=== PATIENT | male | born 1990 | race African-American/Black ===

== ENCOUNTER 2017-01-06 18:58 | Inpatient (IN) ==
[2017-01-06] MEDS ORDERED: ASPIRIN PO STA (19:59)
[2017-01-06] MEDS ORDERED: ASPIRIN EC ONE (20:02)
[2017-01-06 20:19] LABS: MANUAL DIFF NEEDED? NO
[2017-01-06 20:28] LABS: BASO% 0.2 % (0.0-0.8); HEMATOCRIT 43.4 % (42.0-52.0); HEMOGLOBIN 15.2 g/dL (14.0-18.0); IMM GRAN# 0.01 X1000 (0.0-0.04); IMM GRAN% 0.2 % (0.0-0.5); LYMPH# 0.65 X1000 (1.2-3.4); LYMPH% 16.1 % (20.5-51.1); MCV 79.9 FL (81-99); MONO# 0.13 X1000 (0.11-0.59); MONO% 3.2 % (1.7-9.3); MPV 9.6 FL (7.4-10.4); NEUT% 80.3 % (42.2-75.2); PLT 151 X1000 (130-400); RBC 5.43 XMIL (4.7-6.1)
[2017-01-06 20:46] LABS: AGAP 13; ALBUMIN 4.1 g/dL (3.5-5.0); ALKALINE PHOSPHATASE 83 U/L (32-122); BUN 15 mg/dL (8-22); CALCIUM 9.1 mg/dL (8.8-10.2); CHLORIDE 98 mmol/L (98-107); COSMO 270; GOT 57 U/L (10-34); GPT 60 U/L (10-44); MAGNESIUM 2.1 mg/dL (1.5-2.7); POTASSIUM 3.9 mmol/L (3.5-5.1); SODIUM 133 mmol/L (136-145); TCO2 22 mmol/L (25-35); TOTAL PROTEIN 7.9 g/dL (6.3-8.3)
[2017-01-06 20:49] LABS: CK PROFILE 1133 U/L (24-204)
--- NOTE | 2017-01-06 20:50 | EKG Report ---
Test Performed on : 01/06/2017 7:30:13 PM Test Reason : CP Blood Pressure : / mmHG Vent. Rate : 100 BPM Atrial Rate : 100 BPM P-R Int : 136 ms QRS Dur : 096 ms QT Int : 340 ms P-R-T Axes : 040 009 000 degrees QTc Int : 438 ms Normal sinus rhythm. Normal ECG When compared with ECG of 06-JAN-2017 19:29, (Unconfirmed) No significant change was found Unconfirmed Result
[2017-01-06 20:56] LABS: INR 0.97 (0.86-1.15); PROTIME 13.7 Seconds (12.1-15.5); PTT PL 33.3 Seconds (22.6-43.9)
[2017-01-06 21:04] LABS: CK INDEX 0.1 (0.0-2.5); CK-MB 1.06 ng/mL (0.0-5.0)
--- NOTE | 2017-01-06 21:07 | Diag Imaging Result Doc PS360 ---
EXAM: CHEST-2 VIEWS HISTORY: CP TECHNIQUE: COMPARISON: 04/18/2014 FINDINGS: The lungs are well expanded except for minimal atelectasis in the right base. The heart is not enlarged. The vessels are not distended. There are no infiltrates. No pleural effusions. IMPRESSION: Right middle lobe atelectasis, otherwise negative exam. Electronically signed by Kenny Gilbert 01/06/2017 9:05 PM
--- NOTE | 2017-01-06 23:03 | ED EKG INTERP ---
This chart was entered by Latricia Sahfer Scribe, acting as scribe for Rogelio Jefferson Jr, MD. EKG Interpretation - EKG Time of EKG reading by physician:: 19:30 EKG Read and Signed by:: Rogelio Jefferson Jr EKG Interpretation (*Must complete 3 of following elements*): Normal Rate: 100 Rhythm: normal sinus rhythm Comments: normal ECG Attestation - Physician/ ROB Attestation The physician spent face to face time with patient:: No Advanced Practice Provider documentation review:: Supervising physician onsite and consulted in the evaluation and care of this patient. The physician did not have a face to face encounter with the patient. This chart was documented by the indicated scribe, (Latricia Shafer Scribe) and accurately reflects the services I performed and decisions made by me, Rogelio Jefferson Jr, MD, as attested by the provider's signature.
[2017-01-07] MEDS ORDERED: NS 1,000 ML IV ONE ×2 (00:37→01:37)
[2017-01-07] MEDS ORDERED: ZOFRAN IV PRN (01:37)
[2017-01-07] MEDS ORDERED: MORPHINE IV PRN (01:37)
--- NOTE | 2017-01-07 01:37 | PROVIDER DOCUMENTATION ---
This chart was entered by Latricia Shafer Scribe, acting as scribe for Rogelio Jefferson Jr, MD. HPI-Chest Pain - General Chief Complaint: Chest Pain Stated Complaint: CHEST PAIN/BP HIGH Time Seen by Provider: 01/06/17 21:42 Source: patient Allergies/Adverse Reactions: Patient Allergies Allergy/AdvReac Type Severity Reaction Status Date / Time No Known Allergies Allergy Verified 09/18/14 18:01 - History of Present Illness-CP Nature of Presenting Problem: 26 Y/O M presents to Er with the complain of chest pain started this evening. pt states that he was watching tv when the pain started. pt states that pain is on the L side of chest and does not radiates. pt states that he went to urgent care this morning and got a shot of antibiotic and steroids for his sinus and ear infection. pt denies any other symptoms. Location: reports: other (L side) Chest Pain Radiation: reports: no radiation Quality of Pain: reports: sharp Onset/Duration: this evening Timing: improving Nitro Today/Relief: no nitro taken today Aspirin Treatment Today: provided at home Prior Chest Pain/Cardiac Workup: reports: no prior chest pain Similar Symptoms Previously?: No Recently Seen Here or By Another Healthcare Provider: Yes Review of Systems - Adult - REVIEW OF SYSTEMS - ADULT Constitutional: reports: no symptoms reported Eyes: reports: no symptoms reported Ears, Nose, Mouth & Throat: reports: no symptoms reported Cardiovascular: reports: chest pain. denies: irregular heart rate, palpitations Respiratory: reports: no symptoms reported Gastrointestinal: reports: no symptoms reported Genitourinary: reports: no symptoms reported Musculoskeletal: reports: no symptoms reported Integumentary: reports: no symptoms reported Neurological: reports: no symptoms reported Psychiatric: reports: no symptoms reported Endocrine: reports: no symptoms reported Hematologic/Lymphatic: reports: no symptoms reported Allergic/Immunologic: reports: no symptoms reported All Other Systems: Reviewed and Negative Past History - Adult - PAST MEDICAL HISTORY-ADULT Review of Records: reports: Old Records Reviewed, Nursing Assessment Review Major Childhood Illnesses: reports: denies history Cardiovascular: reports: HTN - PRIOR SURGERIES/PROCEDURES Surgical/Procedure History: reports: none - IMMUNIZATION STATUS Childhood Immunizations: See Nurse Assessment Flu Vaccine: See Nurse Assessment - SOCIAL HISTORY Smoking: cigarettes Provider spent 3-5 mins advising pt. on dangers of tobacco.: Discussed manners to quit use, and f/u contacts for add'l counseling. Substance Use: alcohol Physical Exam-General - PHYSICAL EXAM-ADULT Initial Vital Signs Reviewed: Yes - CONSTITUTIONAL General Appearance: appears well, alert - EYES Eyes: PERRL/EOMI, pink conjunctivae - HEAD, EARS, NOSE, MOUTH & THROAT HENMT: moist mucous membranes, normal ENT inspection - NECK Neck: non-tender, full range of motion, supple - RESPIRATORY Respiratory: chest non-tender, lungs clear, normal breath sounds - CARDIOVASCULAR Cardiovascular: normal peripheral pulses, regular rate, rhythm, no edema - GASTROINTESTINAL (ABDOMEN) Abdominal Exam: normal bowel sounds, non tender, soft - MUSCULOSKELETAL Back Exam: normal inspection, no CVA tenderness, no vertebral tenderness Extremity: normal range of motion, non-tender, normal gait - SKIN Integumentary: normal color, normal turgor, warm/dry - NEUROLOGIC Neurologic: grossly normal, no motor/sensory deficits - PSYCHIATRIC Psych/Mental Status: normal mood/affect, normal thought content, normal thought process, oriented x 3 Progress - PLAN OF CARE/RESULTS Progress/Plan/Lab Results: Vital Signs - 8 hr 01/06/17 19:17 01/06/17 23:31 Temperature 98.5 F 97.2 F L Pulse Rate 95 H 76 Respiratory Rate 18 20 Blood Pressure 161/86 127/79 O2 Sat by Pulse Oximetry 94 L 99 Laboratory Results - last 24 hr 01/06/17 01/06/17 01/06/17 20:15 20:15 20:15 WBC RBC Hgb Hct MCV MCH MCHC RDW Std Deviation Plt Count MPV Immature Gran % (Auto) Neut % (Auto) Lymph % (Auto) Pine % (Auto) Eos % (Auto) Baso % (Auto) Immature Gran # (Auto) Neut # (Auto) Lymph # (Auto) Pine # (Auto) Eos # (Auto) Baso # (Auto) PT INR APTT (Factor Assay) D-Dimer Sodium 133 L Potassium 3.9 Chloride 98 Carbon Dioxide 22 L Anion Gap 13 BUN 15 Creatinine 0.9 Estimated GFR/1.73 m2 > 60 BUN/Creatinine Ratio 17 Glucose 148 H Calculated Osmolality 270 Calcium 9.1 Magnesium 2.1 Total Bilirubin 0.50 AST 57 H ALT 60 H Alkaline Phosphatase 83 Creatine Kinase 1133 H Creatine Kinase Index 0.1 CK-MB (CK-2) 1.06 Troponin T < 0.010 Jks-W-Uvflpshkqes Pept 67 Total Protein 7.9 Albumin 4.1 Globulin 4.0 Albumin/Globulin Ratio 1.0 01/06/17 01/06/17 20:15 20:15 WBC 4.03 L RBC 5.43 Hgb 15.2 Hct 43.4 MCV 79.9 L MCH 28.0 MCHC 35.0 RDW Std Deviation 14.1 Plt Count 151 MPV 9.6 Immature Gran % (Auto) 0.2 Neut % (Auto) 80.3 H Lymph % (Auto) 16.1 L Pine % (Auto) 3.2 Eos % (Auto) 0.0 Baso % (Auto) 0.2 Immature Gran # (Auto) 0.01 Neut # (Auto) 3.23 Lymph # (Auto) 0.65 L Pine # (Auto) 0.13 Eos # (Auto) 0.00 Baso # (Auto) 0.01 PT 13.7 INR 0.97 APTT (Factor Assay) 33.3 D-Dimer 2.60 H Sodium Potassium Chloride Carbon Dioxide Anion Gap BUN Creatinine Estimated GFR/1.73 m2 BUN/Creatinine Ratio Glucose Calculated Osmolality Calcium Magnesium Total Bilirubin AST ALT Alkaline Phosphatase Creatine Kinase Creatine Kinase Index CK-MB (CK-2) Troponin T Dde-U-Ddptsqaigyy Pept Total Protein Albumin Globulin Albumin/Globulin Ratio Orders Category Date Time Status Cardiac Monitoring DIRECTED Care 01/06/17 20:00 Active Oxygen Therapy- ED Nursing DIRECTED Care 01/06/17 20:00 Active Saline Loc NOW Care 01/06/17 20:00 Active CHEST-2 VIEWS [RAD] Stat Exams 01/06/17 20:[address] ANGIOGRM/PULMONARY ARTERIES [CT] Stat Exams 01/06/17 21:48 Taken CBC WITH ELECTRONIC DIFF [HEME] Stat Lab 01/06/17 20:15 Completed CK PROFILE [SP CHEM] Stat Lab 01/06/17 20:15 Completed COMPREHENSIVE METABOLIC PANEL [CHEM] Stat Lab 01/06/17 20:[address] Com[address] D-DIMER PL [COAG] Stat Lab 01/06/17 20:15 Completed MAGNESIUM [CHEM] Stat Lab 01/06/17 20:15 Completed PRO B-NATRIURETIC PEPTIDE Stat Lab 01/06/17 20:15 Com[address]IME WITH INR PL [COAG] Stat Lab 01/06/17 20:[address] [COAG] Stat Lab 01/06/17 20:15 Completed TROPONIN T Stat Lab 01/06/17 20:15 Completed 0.9% Sodium Chloride Inj [Ns] 1,000 ml Med 01/07/17 00:37 Active IV 999 mls/hr Aspirin Med 01/06/17 19:59 Discontinued 325 mg PO STAT STA Aspirin EC Med 01/06/17 20:02 Discontinued 325 mg .ROUTE .STK-MED ONE EKG [EKG] Stat Ther 01/06/17 20:00 Draft Result Diagrams: 01/06/17 20:15 01/06/17 20:15 - XRAY 1 XRAY: Bilateral XRAY Study: Chest Impression: Abnormal XRAY Interpretation: Right middle lobe atelectasis otherwise negative by radiologist - CT/MRI 1 CT Study: Angiogram Impression: Normal CT Results: no PE identified, mild R hilar adenopathy is nonspecificby radiologist - CONSULTS/PCP/HOSPITALIST Notification #1 *Consult/PCP/Hospitalist*: Dr. Ferris Time Discussed: 01:32 Reason/Comments: discussed about pt Consult Disposition: Admit (OBSERVATION) Departure - Departure Date of Disposition Decision: 01/07/17 Time of Disposition Decision: 01:36 DIAGNOSIS: Rhabdomyolysis Qualifiers: Rhabdomyolysis type: non-traumatic Qualified Code(s): M62.82 - Rhabdomyolysis Disposition: ADMITTED INPATIENT 09 Certified Medical Emergency: Emergent Condition: Good Referrals and Follow-Ups: Gilberto Vásquez MD [Primary Care Provider] - Work Excuses: Return to School/Parent Work - Critical Care Note This patient required my direct & personal management of CC.: No Attestation - Physician/ ROB Attestation The physician spent face to face time with patient:: Yes Advanced Practice Provider documentation review:: Supervising physician onsite and consulted in the evaluation and care of this patient. The physician did have a face to face encounter with the patient. This chart was documented by the indicated scribe, (Latricia Shafer Scribe) and accurately reflects the services I performed and decisions made by me, Rogelio Jefferson Jr, MD, as attested by the provider's signature.
--- NOTE | 2017-01-07 08:19 | Diag Imaging Result Doc PS360 ---
EXAM: CT ANGIOGRM/PULMONARY ARTERIES HISTORY: elevated d-dimer with risk factors TECHNIQUE: CT angiogram of the chest with IV contrast with 3-D reconstructions as per standard protocol. COMPARISON: None. FINDINGS: There is appropriate pulmonary arterial opacification. No filling defects are appreciated. There is no evidence for acute pulmonary embolism. There is no evidence for aortic aneurysm or dissection. There are some mildly prominent right hilar lymph nodes. There is moderate atelectasis within the right middle lobe and a small amount of atelectasis within the lingula of the left upper lobe. No pleural or pericardial effusion is appreciated. No pneumothorax is identified. There is mild gynecomastia. There are a few scattered noncalcified pulmonary nodules which measure 3 mm or less. There is a small area of pneumatocele formation or pulmonary emphysema within the posterior right upper lobe. Preliminary interpretation was given by [facility]. IMPRESSION: No evidence for acute pulmonary embolism. Right middle lobe atelectasis. Mild with prominent right hilar lymph nodes. Other incidental and nonacute findings as detailed above. Electronically signed by Betty Simon 01/07/2017 8:17 AM
[2017-01-07] MEDS ORDERED: NICODERM PATCH TD PRN (09:25)
[2017-01-07] MEDS: TYLENOL PO PRN ×3 (09:41→23:12)
[2017-01-07 09:53] LABS: MANUAL DIFF NEEDED? NO
[2017-01-07 09:55] LABS: BASO% 0.3 % (0.0-0.8); HEMATOCRIT 42.7 % (42.0-52.0); HEMOGLOBIN 14.8 g/dL (14.0-18.0); IMM GRAN# 0.02 X1000 (0.0-0.04); IMM GRAN% 0.5 % (0.0-0.5); LYMPH# 0.72 X1000 (1.2-3.4); LYMPH% 19.5 % (20.5-51.1); MCHC 34.7 g/dL (33-37); MCV 80.9 FL (81-99); MONO# 0.09 X1000 (0.11-0.59); MONO% 2.4 % (1.7-9.3); MPV 9.7 FL (7.4-10.4); NEUT% 77.3 % (42.2-75.2); PLT 147 X1000 (130-400); RBC 5.28 XMIL (4.7-6.1)
[2017-01-07] MEDS: NS 1,000 ML IV SCH ×3 (09:57→23:13)
--- NOTE | 2017-01-07 10:07 | HISTORY AND PHYSICAL ---
PRIMARY CARE PHYSICIAN: Dr. Gilberto Vásquez MD CHIEF COMPLAINT: Substernal chest pain. HISTORY OF PRESENT ILLNESS: This is a 26-year-old male who presents to [facility] ER with complaints of substernal chest pain, shortness of breath, states the pain is nonradiating and intermittent. He states he went to a walk- in clinic the day prior and got a steroid shot and an antibiotic shot for a sinus and ear infection. He states when he got home, he felt a heaviness in his chest, felt some shortness of breath, and so he came to the emergency room for evaluation and treatment. His cardiac enzymes showed a creatine kinase of 1133 with a normal CKMB of 1.06 and a negative troponin of less than 0.010. He had a D-dimer of 2.60. A pulmonary arteriogram was obtained that showed an impression of no evidence for an acute pulmonary embolism, some right middle lobe atelectasis, mild, with prominent right hilar lymph nodes. His white cells were within normal limits. He was admitted for further evaluation and treatment. PAST MEDICAL HISTORY: Hypertension. PAST SURGICAL HISTORY: Right cyst removed from his right testicle. FAMILY HISTORY: Hypertension, heart disease, cancer and a CVA. SOCIAL HISTORY: He currently lives with his , smokes 1/2 pack of cigarettes a day and has done so for 13 years. Denies any alcohol or illicit drug use. ALLERGIES: He has no known drug allergies. HOME MEDICATIONS: He does not take any medications on a routine basis. DIAGNOSTIC DATA: White blood cell count is 4.03, hemoglobin 15.2, hematocrit 43.4, platelets 151. PT and INR of 13.7 and 0.97 with a D-dimer of 2.60. Sodium is 133, potassium 3.9, chloride 98, CO2 is 22, BUN is 15, creatinine 0.9, glucose 148, magnesium 2.1. AST is 57 with an ALT of 60. Alkaline phosphatase is 83. Creatine kinase of 1133. CKMB is 1.06 with a troponin of less than 0.010. ProBNP of 67. Chest x-ray showed right middle lobe atelectasis, otherwise negative exam. Pulmonary arteriogram showed no evidence of a pulmonary embolism, right middle lobe atelectasis mild with prominent right hilar lymph nodes and other incidental and nonacute findings. EKG on arrival showed normal sinus rhythm at 100. REVIEW OF SYSTEMS: He denied any fever, chills, blurred vision or dizziness. He was positive for some chest pain, substernal and nonradiating, shortness of breath, nausea and vomiting. Denied any abdominal pain, constipation, diarrhea or burning or hurting with urination. PHYSICAL EXAMINATION: VITAL SIGNS: On arrival, he had a temperature of 98.5, pulse 95, respirations 18, blood pressure 161/86, saturating 94% on room air. Currently he has a temperature of 100.4 with a pulse of 108, respirations 18, blood pressure 144/72, saturating 99% on room air. GENERAL: This is a 26-year-old male who is lying in the bed and answers questions appropriately. HEENT: Normocephalic and atraumatic. Pupils are equal, round and reactive to light. Extraocular movements were intact. Oropharynx and nares are clear. NECK: Supple. LUNGS: Clear to auscultation bilaterally with equal lung expansion and chest wall movement. HEART: Regular rate and rhythm. No murmurs, rubs or gallops. ABDOMEN: Soft, nontender and nondistended. Bowel sounds are present x4 quadrants. EXTREMITIES: There is no cyanosis, clubbing or edema. NEUROLOGICAL: The cranial nerves II through XII are grossly intact. ASSESSMENT: 1. Chest pain. 2. Elevated D-dimer. 3. Rhabdomyolysis. 4. Recent diagnosis of sinusitis. 5. Tobacco abuse. PLAN: He was admitted to the Medical Unit. Initially held n.p.o., but I do not feel at this time that this is true cardiac related, so we will place him on a healthy heart diet , place him on telemetry, O2 saturation per protocol. We will check blood cultures x2. We will recheck a CBC, CMP and cardiac profile this a.m. Continue his normal saline at 150 mL per hour. Tylenol 650 p.o. q.4 hours p.r.n. We will start him on some doxycycline 100 mg IV q.12 since he has not completed his antibiotic treatment for his sinusitis and ear infection. He has some right middle lobe atelectasis which may be the beginning of some pneumonia, so we will place him on the doxycycline and will do a lower extremity venous Doppler to rule out any blood clots in his legs and recheck labs in a.m. Dictated by OTILIO Dutton for Justin Ferris MD cc: OTILIO Dutton MD Moses Awoniyi, MD pt examined, agree with above APENOT MTDD
[2017-01-07 10:21] LABS: AGAP 12; ALBUMIN 3.8 g/dL (3.5-5.0); ALKALINE PHOSPHATASE 76 U/L (32-122); BUN 13 mg/dL (8-22); CALCIUM 8.6 mg/dL (8.8-10.2); CHLORIDE 100 mmol/L (98-107); COSMO 270; GOT 53 U/L (10-34); GPT 58 U/L (10-44); POTASSIUM 3.8 mmol/L (3.5-5.1); SODIUM 135 mmol/L (136-145); TCO2 23 mmol/L (25-35); TOTAL PROTEIN 7.6 g/dL (6.3-8.3)
[2017-01-07 10:42] LABS: CK INDEX 0.1 (0.0-2.5); CK-MB 1.01 ng/mL (0.0-5.0)
[2017-01-07] MEDS: DOXYCYCLINE 100 MG in NS 250 ML IV SCH ×2 (10:46→21:44)
--- NOTE | 2017-01-07 11:03 | Extremity Venous Study ---
EXAM: Venous U/S Bilateral Legs HISTORY: elevated ddimer TECHNIQUE: Morejon scale, color Doppler, and duplex evaluation was performed. COMPARISON: None. FINDINGS: The deep veins of the bilateral lower extremities demonstrate appropriate compressibility and augmentation. No intraluminal thrombus is visualized. There is no evidence for DVT. The superficial veins appear patent. IMPRESSION: No evidence for deep venous thrombosis bilateral lower extremities. Electronically signed by Betty Simon 01/07/2017 11:01 AM
[2017-01-08] MEDS: TYLENOL PO PRN ×3 (04:04→19:55)
[2017-01-08] MEDS: NS 1,000 ML IV SCH ×3 (05:51→21:43)
[2017-01-08 06:04] LABS: HEMATOCRIT 40.5 % (42.0-52.0); HEMOGLOBIN 13.9 g/dL (14.0-18.0); MCHC 34.3 g/dL (33-37); MCV 81.5 FL (81-99); MPV 9.5 FL (7.4-10.4); RBC 4.97 XMIL (4.7-6.1)
[2017-01-08 06:21] LABS: ALBUMIN 3.4 g/dL (3.5-5.0); DIRECT BILIRUBIN 0.3 mg/dL (0.00-0.20); TOTAL BILIRUBIN 0.7 mg/dL (0.20-1.00); TOTAL PROTEIN 6.4 g/dL (6.3-8.3)
[2017-01-08] MEDS: ROCEPHIN 1 GM/NS 1 GM/50 ML IVPB IV SCH (06:43)
[2017-01-08 06:45] LABS: AGAP 13; BUN 11 mg/dL (8-22); CHLORIDE 100 mmol/L (98-107); COSMO 266; POTASSIUM 3.7 mmol/L (3.5-5.1); SODIUM 133 mmol/L (136-145); TCO2 19 mmol/L (25-35)
[2017-01-08] MEDS ORDERED: MORPHINE IV PRN (08:12)
--- NOTE | 2017-01-08 08:54 | PROGRESS NOTE ---
DATE: 01/08/2017 SUBJECTIVE: Patient states he is feeling better. Still having slight cough, still having slight congestion. Denies any other symptoms. Denies any chest pain. He does state that he had a fever last night. OBJECTIVE: Vital Signs Reviewed: Temperature 98 degrees, T-max 103 degrees, pulse 91, respiratory rate 18, BP 145/80, satting 98% on room air. General: Patient is awake, alert, currently in no respiratory distress. Pleasant to talk with. Neck: Supple. CV: Regular rate. Chest: Relatively clear and nonlabored. No wheezing. No crackles. Good air movement bilaterally. Abdomen: Soft. Extremities: Moves all extremities. Neurologic: No focal changes. Skin: Warm, dry and no rashes. LABS: CBC normal. CMP essentially normal. AST, ALT both remain elevated at 66 and 69. CPK has now dropped down to 392 from a high of 1133. ASSESSMENT: 1. Rhabdomyolysis, resolved. 2. Chest pain, resolved. 3. Elevated D-dimer with a negative deep vein thrombosis workup and a negative pulmonary embolus workup. 4. Fever of unknown significance. Blood cultures currently negative. Does not have a urine on chart. Certainly will check this and a urine culture. He continued to have fever yesterday. CT of his chest on chart and certainly will check that. PLAN: We will continue doxycycline. Will add Rocephin this morning as he had a fever; certainly this could be viral in nature. We will continue to follow. Further orders as needed. cc: MD Justin Cedeno MD
[2017-01-08] MEDS: DOXYCYCLINE 100 MG in NS 250 ML IV SCH ×2 (09:05→21:43)
[2017-01-08 09:59] LABS: BILIRUBIN URINE NEGATIVE (NEGATIVE); BLOOD URINE 1+ (NEGATIVE); GLUCOSE URINE NEGATIVE (NEGATIVE); LEUKOCYTES URINE TRACE (NEGATIVE); NITRITE URINE NEGATIVE (NEGATIVE); PH URINE 6.5; PROTEIN URINE TRACE mg/dL (NEGATIVE); UROBILINOGEN URINE 4+(12 mg/dL)
[2017-01-08 10:00] LABS: CLARITY CLEAR (CLEAR); COLOR YELLOW
[2017-01-08 10:24] LABS: URINE CULTURE PL NEEDED? YES; URINE EPITHELIAL CELLS >10 /HPF (<10); URINE SOURCE CLEAN CATCH
[2017-01-08] MEDS: MOTRIN PO PRN (17:23)
[2017-01-09] MEDS: TYLENOL PO PRN (04:36)
[2017-01-09] MEDS: ROCEPHIN 1 GM/NS 1 GM/50 ML IVPB IV SCH (05:52)
[2017-01-09] MEDS: DOXYCYCLINE 100 MG in NS 250 ML IV SCH (09:18)
[2017-01-09] MEDS: MOTRIN PO PRN (09:18)
--- NOTE | 2017-01-09 14:13 | Diag Imaging Result Doc PS360 ---
EXAM: CT THORAX W/O CONTRAST INDICATION: fever, ? pneumonia TECHNIQUE: COMPARISON: 01/06/2017 FINDINGS: Atelectasis in the right middle lobe is unchanged and there has been development of atelectasis in both lower lobes as well as the lingula. There has been development of trace bilateral pleural fluid at the bases. Otherwise, no new consolidations are appreciated. Tiny scattered pulmonary nodules are unchanged. The heart is not enlarged. Mildly prominent right hilar lymph nodes are unchanged. IMPRESSION: 1.Subsegmental atelectasis at the lower lung zones bilaterally that has worsened during the interval. 2.Interval development of trace bilateral pleural effusions. 3.Otherwise, the chest is stable. Electronically signed by Eduardo Elder 01/09/2017 2:11 PM
[2017-01-09 16:00] VITALS: BP 142/88
[2017-01-09] MEDS ORDERED: ZOSYN 3.375 GM in NS 50 ML IV SCH (16:15)
[2017-01-09] MEDS ORDERED: ZITHROMAX PO SCH (17:00)
--- NOTE | 2017-01-09 17:26 | Diag Imaging Result Doc PS360 ---
EXAM: CT PARANASAL SINUSES TECHNIQUE: INDICATION: sinusitis COMPARISON: None. FINDINGS: All of the paranasal sinuses are grossly clear and well aerated. There is no significant sinus mucosal thickening. There are no paranasal sinus air-fluid levels. The ostiomeatal units are widely patent bilaterally. The nasal cavity is clear. The mastoid air cells are clear. The visualized bony structures of the face are intact. The orbits and globes are unremarkable. Surrounding soft tissues are grossly unremarkable, otherwise. IMPRESSION: No evidence of acute or chronic sinusitis. Electronically signed by Eduardo Elder 01/09/2017 5:24 PM
--- NOTE | 2017-01-09 18:41 | CONSULTATION ---
DATE OF CONSULTATION: 01/09/2017 CONCLUSION: Patient is admitted to the hospital with fever. He sounded as though he had some type pulmonary process going on initially because he came in with pleuritic chest pain and having fever. His CT scan and chest x-ray never actually showed an infiltrate but did show pleural effusions. A CT angiogram showed no evidence of pulmonary embolus. The patient did tell me that he thought he had some type of sinus infection initially but he feels like he has cleared it now. RECOMMENDATIONS: I have ordered a CT scan of the sinuses. I have stopped doxycycline and put the patient on azithromycin. I stopped Rocephin and put the patient on Zosyn. DISCUSSION: The patient said approximately 4 days ago he had pleuritic chest pain and he felt he had fever. He was not coughing or short of breath. His CBC shows a white count of 3880, hemoglobin 13.9 and platelet count of 125,000. Creatinine 0.9. GFR is greater than 60. CPK when he came in was 1133, now it is 392. The ALT is 69. Blood and urine cultures are sterile. Urinalysis showed a trace of white cells and 2+ bacteria. CT angiogram showed no pleural effusion. CT scan of the chest showed atelectasis and pleural effusion. PAST MEDICAL HISTORY/REVIEW OF SYSTEMS: Eyes and ears: He denies difficulty hearing or seeing. Neck: No stiffness. Respiratory: See present illness. GI: No nausea, vomiting, or diarrhea. Cardiac: The patient initially had chest pain but it was pleuritic in nature and not necessarily associated with activity or eating. Neurologic: No seizure or loss of motor or sensory function. Integument: No rash. Genitourinary: No dysuria or flank pain. GI: No nausea, vomiting, or diarrhea. PREVIOUS HOSPITALIZATIONS AND OPERATIONS: Approximately 5 years ago he had a cyst removed from his right testicle. MEDICAL DISEASES: Positive for hypertension approximately 2 years ago but this has cleared spontaneously. INFECTIOUS DISEASE HISTORY: Negative for pneumonia and UTI. FAMILY HISTORY: Positive for diabetes mellitus, hypertension, cancer, myocardial infarction and stroke. [place]IAL HISTORY[place] He sm[place] cigarettes, drinks alcoholic beverages but does not abuse drugs. He is . He has cat and dog for pets. He is on no medicines at home. 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 PHYSICAL EXAMINATION: Vital Signs: Earlier this morning the temperature was 102 degrees, now it is 98.4, pulse 98, respirations 18, blood pressure 128/89. General: This is a slightly obese but otherwise healthy-appearing young male. He is in no acute distress. Head, eyes, ears, nose, and Throat:: No drainage noted from the nose or ears. Sinuses are not tender. Mouth. The patient did not have any white patches. Neck: No stiffness. Lungs: Clear to auscultation. Cardiovascular: Heart rate is regular. I did not hear a murmur. Abdomen: Soft and nontender. Neurologic: Patient is alert. He can move his extremities. There is no tremor. His sensation is intact to touch. His memory as regarding his medical history was intact. Thank you for the consult. cc: Efren Castanon MD
--- NOTE | 2017-01-09 22:13 | DISCHARGE SUMMARY ---
ADMISSION DATE: 01/06/2017 DISCHARGE DATE: 01/09/2017 DISCHARGE DIAGNOSES: 1. Fever of unknown origin. The patient continued to have fevers during the hospital stay, despite antibiotics. 2. Elevated D-dimer, negative. 3. Chest pain, resolved. 4. Rhabdomyolysis, resolved. 5. Recent sinusitis, which is most likely the cause of this current infection. 6. Chronic tobacco abuse. CONSULTATIONS: Dr. Castanon. PROCEDURES: CT of the chest negative. CT of the sinuses negative. Blood culture negative. Urine culture negative. BRIEF HOSPITAL COURSE: Patient is a 26-year-old male who is a patient of Dr. Vásquez. He presented to the hospital with chest pain, shortness of breath, cough, congestion. All of this resolved. Continued to have a fever throughout the hospital stay, as high as 103.1. However, on discharge, he was awake, alert. He was in no distress. He was having no shortness of breath, no coughing, no facial pain. Denied any dysuria symptoms, denied any other urinary symptoms. Denied any diarrhea, constipation, melena. States that he felt like he always does, and was asking to go home. DISPOSITION: The patient will be discharged home. He will continue Augmentin for 7 more days at home. He was on doxycycline and Rocephin during the hospital stay. He has a fever of unknown origin. He will follow up with Dr. Castanon as an outpatient within 1 week if he still has fever. cc: Doyle Manning MD
[2017-01-10 10:01] LABS: HEPATITIS PROFILE ACUTE SEE COMMENTS
== END 2017-01-09 19:00 | disposition home or self-care (01) ==
LOC: P.MEDSURG 18:58 → P.ED 18:58 → SUATTDRO 18:59 → OBSVTOIN 18:59
PROVIDERS: ATTEND Family Medicine